=== PATIENT | male | born 1960 | race Hispanic/Latino ===

== ENCOUNTER 2017-02-10 15:28 | Emergency (ER) | payer BC ==
[2017-02-10 15:29] VITALS: BMI 30.3
--- NOTE | 2017-02-10 15:34 | ED PDOC ---
Arrival/HPI - General Time Seen by Provider: 02/10/17 15:33 Historian: Patient - History of Present Illness Narrative History of Present Illness (Text): 02/10/17 15:33 57 year old male, pmh including hyperlipidemia, nkda, last tetanus doesn't remember, complaining of lt. foot/rt. knee/ankle and lt. hand 4th digit pain s/ p fall with the head injury. Pt. stated that he was helping to move the wheel chair down, lost his balance and fall on the lt hand/rt ankle/knee region and hit the lt. posterior head. Pt. has no nausea or vomiting, no fever or chills, no dizziness, no change in vision, no other medical or psychological complaints. Past Medical History - Provider Review Nursing Documentation Reviewed: Yes - Tetanus Immunization Tetanus Immunization: Unknown - Pulmonary Hx Sleep Apnea: Yes - Musculoskeletal/Rheumatological Hx Falls: No - Gastrointestinal Hx Gastroesophageal Reflux: Yes - Psychiatric Hx Substance Use: No - Surgical History Hx Inguinal Hernia Repair: Yes - Suicidal Assessment Feels Threatened In Home Enviroment: No Family/Social History - Physician Review Nursing Documentation Reviewed: Yes Family/Social History: Unknown Family HX Smoking Status: Former Smoker Hx Alcohol Use: No Hx Substance Use: No Allergies/Home Meds Allergies/Adverse Reactions: Allergies No Known Allergies Allergy (Verified 02/10/17 15:39) Home Medications: Home Meds Medication Instructions Recorded Confirmed Fenofibrate [Tricor] 160 mg PO DAILY 02/23/12 02/10/17 Rosuvastatin Calcium [Crestor] 10 mg PO DAILY 02/23/12 02/10/17 Dexlansoprazole [Dexilant] 60 mg PO DAILY 01/13/13 02/10/17 Metoprolol Succinate [Toprol XL] 50 mg PO DAILY 02/10/17 02/10/17 Review of Systems - Review of Systems Constitutional: absent: Fatigue, Fevers Eyes: absent: Vision Changes ENT: absent: Hearing Changes Respiratory: absent: SOB, Cough Cardiovascular: absent: Chest Pain Gastrointestinal: absent: Abdominal Pain, Nausea, Vomiting Musculoskeletal: Arthralgias, Joint Swelling, Myalgias. absent: Back Pain, Neck Pain Skin: Other (+abrasion). absent: Pruritis, Skin Lesions, Laceration, Abscess, Ulcer Neurological: Headache. absent: Dizziness Physical Exam Vital Signs Reviewed: Yes Vital Signs Temp Pulse Resp BP Pulse Ox 02/10/17 19:34 86 18 132/76 97 02/10/17 17:50 75 18 116/75 02/10/17 15:41 98.0 F 101 H 16 119/84 94 L Temperature: Afebrile Blood Pressure: Normal Pulse: Regular Respiratory Rate: Tachypneic Appearance: Positive for: Well-Appearing, Non-Toxic Pain Distress: Moderate Mental Status: Positive for: Alert and Oriented X 3 - Systems Exam Head: Present: Atraumatic, Normocephalic, Tenderness (+lt. posterior occipital region) Pupils: Present: PERRL Extroacular Muscles: Present: EOMI Conjunctiva: Present: Normal Mouth: Present: Moist Mucous Membranes Neck: Present: Normal Range of Motion, Trachea Midline. No: MIDLINE TENDERNESS , Paraspinal Tenderness, Lymphadenopathy Respiratory/Chest: Present: Clear to Auscultation, Good Air Exchange. No: Respiratory Distress, Accessory Muscle Use, Wheezes, Decreased Breath Sounds, Rales, Retracting, Rhonchi Cardiovascular: Present: Regular Rate and Rhythm, Normal S1, S2. No: Murmurs Abdomen: Present: Normal Bowel Sounds. No: Tenderness, Distention, Peritoneal Signs, Rebound, Guarding Back: Present: Normal Inspection, Other (Thoracic to LS spine: no step off, no abrasion or laceration. ). No: CVA Tenderness, Midline Tenderness, Paraspinal Tenderness Upper Extremity: Present: Normal Inspection, Other (LUE: visible superficial 1cm abrasion noted on the lt. elbow with no bony tenderness or swelling, +ttp on the lt. hand 4th digit PIPJ with no swelling, no wrist or scaphoid tenderness , FROM without limtiation, sensation intact, motor 5/5, +Radial pulse, capillary refill< 2 seconds, neurovascular intact. ). No: Cyanosis, Edema Lower Extremity: Present: Normal Inspection, Other (RLE: +ttp on the lateral and anterior aspect of the knee with superficial abrasion approx. 3cm diameter abrasion, +ttp on the lateral ankle with approx. 2cm diameter abrasion, negative david and meyers signs, FROM without limitation, sensation intact, motor 5/5, +DPPT Pulses. Lt. foot: visible lt. 1st digit toe nail detachment approx. 80 percent with nail root intact with no visible laceration, +ttp on the lt. foot dorum aspect with no swelling or deformity, FROM without limitation , sensation intact, motor 5/5, +DPPT pulses, capillary refill< 2 seconds , neurovascular intact. ). No: Edema Neurological: Present: GCS=15, CN II-XII Intact, Speech Normal Skin: Present: Warm, Dry, Normal Color. No: Rashes Psychiatric: Present: Alert, Oriented x 3, Normal Insight, Normal Concentration Medical Decision Making ED Course and Treatment: 02/10/17 16:47 -CT head -Xrays -tdap/percocet -wound irrigate with normal saline, clean with betadine, bacitracin and gauze dressing. Pt. refused to removed the nail and will keep it on until it will fall it by it self. 02/10/17 18:45 -CT Head show no acute findings -Lt. hand xray show no fracture or dislocation -Lt. foot xray show no fracture or dislocation except clinically concerning for the cortical deformity on the lt. distal phalanx of the 1st digit toe which I advised to repeat the xray after 5-7 days if pain persist. -Rt. knee and ankle xray show no fracture or dislocation but there is calcification noted on the blood vessel. -Catrachito tapping applied by me after the dressing, declined the crutches but agreed on the cane. -Discharge home with keflex, naproxen, bacitracin oinment, cane, catrachito tapping, post op shoe, follow up with your own pmd and federal appellate law clerk/neurologist within 2 days, return to the ER for any new or worsening signs or symptoms. - RAD Interpretation Radiology Orders: 02/10/17 16:12 HEAD W/O CONTRAST [CT] Stat ANKLE RIGHT 3 VIEWS ROUTINE [RAD] Stat FOOT LEFT 3 VIEWS ROUTINE [RAD] Stat HAND LEFT 4TH DIGIT (FINGER) [RAD] Stat KNEE W PATELLA RIGHT 3 VIEW [RAD] Stat CT Head: PROCEDURE: CT HEAD WITHOUT CONTRAST. HISTORY: - Fall COMPARISON: None available. TECHNIQUE: Axial computed tomography images were obtained through the head/brain without intravenous contrast. Radiation dose: Total exam DLP = 823.45 MGy-cm. This CT exam was performed using one or more of the following dose reduction techniques: Automated exposure control, adjustment of the mA and/or kV according to patient size, and/or use of iterative reconstruction technique. FINDINGS: HEMORRHAGE: No intracranial hemorrhage. BRAIN: Browning-white matter differentiation is preserved. There is no mass, mass effect or abnormal extra-axial fluid collection. VENTRICLES: The ventricles are normal in size, shape and configuration. CALVARIUM: There is no calvarial fracture or extracranial soft tissue swelling. PARANASAL SINUSES: Predominantly clear. MASTOID AIR CELLS: Predominantly clear. OTHER FINDINGS: None. IMPRESSION: No acute intracranial abnormality. ----- Rt. knee xray: soft tissue swelling without articular or osseous injury ---- Rt. ankle xray: no acute findings ----- Lt. foot/toe xray: soft tissue swelling without articular or osseous injury ----- Lt hand/4th digit xray: normal left ring finger radiograph Field Marketer: Radiologist - Medication Orders Current Medication Orders: Discontinued Medications Ketorolac Tromethamine (Toradol) 60 mg IM STAT STA Stop: 10/06/17 18:47 Last Admin: 02/10/17 19:23 Dose: 60 mg MAR Pain Assessment Document 02/10/17 19:23 NM (Rec: 02/10/17 19:24 [id number][facility] Pain Reassessment Is this a pain reassessment? Yes Sleep Is patient sleeping during reassessment? No Pain Scale Used Pain Scale Used Numeric Location Pain Location Body Shaker Repairer Description Description Throbbing Intensity of Pain at present 8 Acceptable Level of Pain 2 IM Administration Charges Document 02/10/17 19:23 NM (Rec: 02/10/17 19:24 [id number][facility] Injection Site MAR Injection Site Right Gluteus Eagle Charges for Administration # of IM Administrations 1 Ketorolac Tromethamine (Toradol) 60 mg IM STAT STA Stop: 02/10/17 19:20 Last Admin: 02/10/17 19:24 Dose: Oxycodone/Acetaminophen (Percocet 5/325 Mg Tab) 1 tab PO STAT STA Stop: 02/10/17 16:14 Last Admin: 02/10/17 16:31 Dose: 1 tab MAR Pain Assessment Document 02/10/17 16:31 [place] (Rec: 02/10/17 16:32 [id number]) Pain Reassessment Is this a pain reassessment? No Sleep Is patient sleeping during reassessment? No Presence of Pain Presence of Pain Yes Pain Scale Used Pain Scale Used Numeric Location Left, Right or Bilateral Left Pain Location Body Shaker Repairer Description Description Throbbing Intensity of Pain at present 7 Acceptable Level of Pain 2 Radiation Location B/L knee, left great toe, right ankle Pain Behavior Facial Grimacing Aggravating Factors Changing Position Alleviating Factors/Management Medication Techniques Tetanus/Reduced Diphtheria/Acell Pertussis (Boostrix Vaccine Inj) 0.5 ml IM .ONCE ONE Stop: 02/10/17 16:14 Last Admin: 02/10/17 16:33 Dose: 0.5 ml MAR Immunization Data Document 02/10/17 16:33 NM (Rec: 02/10/17 16:33 [id number][facility] Immunization Data Vaccine Lot Number [id number] Vaccine Expiration Date 02/18/19 Site Given Right Deltoid Route Intramuscular Immunization Units ml - PA / ARBOREAL SCIENTIST / Resident Statement /DO has reviewed & agrees with the documentation as recorded. Disposition/Present on Arrival - Present on Arrival Any Indicators Present on Arrival: No History of DVT/PE: No History of Uncontrolled Diabetes: No Urinary Catheter: No History of Decub. Ulcer: No History Surgical Site Infection Following: None - Disposition Have Diagnosis and Disposition been Completed?: Yes Diagnosis: Arthralgia, Abrasion, Accidental fall, Head injury, Headache, Toe injury Disposition: HOME/ ROUTINE Disposition Time: 18:49 Patient Plan: Discharge Condition: IMPROVED Additional Instructions: -Discharge home with keflex, naproxen, bacitracin oinment, cane, catrachito tapping, post op shoe, follow up with your own pmd and federal appellate law clerk/neurologist within 2 days, return to the ER for any new or worsening signs or symptoms. Prescriptions: Bacitracin Ointment [Bacitracin] 1 appful TOP BID #15 g Cephalexin [cephalexin] 500 mg PO TID #30 cap Naproxen 500 mg PO BID PRN #20 tab PRN Reason: Other Referrals: Maxwell Barone MD [Primary Care Provider] - Follow up with primary Danyel Estevez DPM [Staff Provider] - Follow up with primary Forms: WORK NOTE
[2017-02-10 15:46] VITALS: TEMP 98
[2017-02-10] MEDS ORDERED: Oxycodone/Acetaminophen 5/325 mg Tab PO STA (16:13)
[2017-02-10] MEDS ORDERED: TDAP Vaccine 0.5 mL Syr IM ONE (16:13)
[2017-02-10 17:55] VITALS: RESP 18
[2017-02-10 19:35] VITALS: BP 132/76; PULSE 86; O2SAT 97
--- NOTE | 2017-02-10 20:02 | CT ---
PROCEDURE: CT HEAD WITHOUT CONTRAST. HISTORY: Fall COMPARISON: None available. TECHNIQUE: Axial computed tomography images were obtained through the head/brain without intravenous contrast. Radiation dose: Total exam DLP = 823.45 MGy-cm. This CT exam was performed using one or more of the following dose reduction techniques: Automated exposure control, adjustment of the mA and/or kV according to patient size, and/or use of iterative reconstruction technique. FINDINGS: HEMORRHAGE: No intracranial hemorrhage. BRAIN: Browning-white matter differentiation is preserved. There is no mass, mass effect or abnormal extra-axial fluid collection. VENTRICLES: The ventricles are normal in size, shape and configuration. CALVARIUM: There is no calvarial fracture or extracranial soft tissue swelling. PARANASAL SINUSES: Predominantly clear. MASTOID AIR CELLS: Predominantly clear. OTHER FINDINGS: None. IMPRESSION: No acute intracranial abnormality.
--- NOTE | 2017-02-11 09:49 | RAD ---
PROCEDURE: Right Knee Radiographs. HISTORY: rt. knee injury s/p fall COMPARISON: None. FINDINGS: BONES: Normal. No fracture. JOINTS: Normal. No osteoarthritis. JOINT EFFUSION: None. OTHER FINDINGS: Suprapatellar soft tissue injury IMPRESSION: Soft tissue swelling without acute articular or osseous abnormality. Please note: No preliminary report/ innterpretation of this examination provided by emergency department personnel.
--- NOTE | 2017-02-11 09:52 | RAD ---
PROCEDURE: Left ring finger radiographs. HISTORY: lt. hand 4th PIPJ pain s/p fall COMPARISON: None. TECHNIQUE: AP radiograph of the left hand, as well as spot oblique and lateral images of left ring finger were obtained. FINDINGS: LEFT RING FINGER: Left ring finger normal, without fracture of focal lesion. Remainder of the left hand (as seen on the AP view) is grossly unremarkable. JOINTS: Normal. SOFT TISSUES: Normal. OTHER FINDINGS: None. IMPRESSION: Normal left ring finger radiographs. Please note: No preliminary report/ innterpretation of this examination provided by emergency department personnel.
--- NOTE | 2017-02-11 09:56 | RAD ---
PROCEDURE: Left Foot Radiographs. HISTORY: lt. foot dorsum injury COMPARISON: None. FINDINGS: BONES: Normal. No fracture. JOINTS: Normal. SOFT TISSUES: Soft tissue swelling 1st digit. OTHER FINDINGS: Injury to the nail bed. IMPRESSION: Soft tissue swelling without acute articular or osseous abnormality. Please note: No preliminary report/ innterpretation of this examination provided by emergency department personnel.
--- NOTE | 2017-02-11 11:14 | RAD ---
PROCEDURE: Right Ankle Radiographs. HISTORY: rt. ankle lateral injury COMPARISON: None FINDINGS: BONES: Normal. No fracture. JOINTS: Normal. No osteoarthritis. Ankle mortise maintained. Talar dome intact SOFT TISSUES: Normal. OTHER FINDINGS: None. IMPRESSION: No acute findings related to/accounting for the clinical presentation.
== END 2017-02-10 19:34 | disposition home or self-care (01) ==
LOC: ED 15:28
DX: S09.90XA Unspecified injury of head, initial encounter (principal); S50.312A Abrasion of left elbow, initial encounter; S80.211A Abrasion, right knee, initial encounter; S90.511A Abrasion, right ankle, initial encounter; S99.922A Unspecified injury of left foot, initial encounter; W10.8XXA Fall (on) (from) other stairs and steps, initial encounter; Y93.89 Activity, other specified; Y92.89 Other specified places as the place of occurrence of the external cause; Z23 Encounter for immunization
CPT/HCPCS: 70450; 73140; 73562; 73610; 73630; 90471; 90715; 96372; 99285; J1885